=== PATIENT | male | born 1960 | race Caucasian/White ===

== ENCOUNTER 2017-12-19 14:52 | Inpatient (IN) | payer SELFPAY ==
[~2017-12-19 14:52] MED LIST: Iopamidol 370 76% 100 ML VIAL ONE; Iopamidol 370 76% 50 ML VIAL FS ONE
[2017-12-19] MEDS ORDERED: Nitroglycerin 2% Ointment 1 INCH/1 GM Packet ONE (14:58)
[2017-12-19] MEDS ORDERED: Lidocaine 1% (PF) 30 ML VIAL ONE (15:08)
[2017-12-19] MEDS ORDERED: Aggrastat 12.5 MG/250 ML 250 ML ONE (15:27)
[2017-12-19] MEDS ORDERED: Norepinephrine 4 MG/4 ML VIAL ONE (16:14)
[2017-12-19] MEDS ORDERED: Clopidogrel Bisulfate 300 MG TAB ONE (16:25)
[2017-12-19] MEDS ORDERED: cloNIDine 0.1 MG TAB PO PRN (16:58)
[2017-12-19] MEDS ORDERED: traMADol HCl 50 MG TAB PO PRN (16:58)
[2017-12-19] MEDS ORDERED: Milk Of Magnesia 30 ML UDCUP PO PRN (16:58)
[2017-12-19] MEDS ORDERED: Mag-Al 1200 mg/1200 mg/30 ML UDCUP PO PRN (16:58)
[2017-12-19] MEDS ORDERED: Aggrastat 12.5 MG/250 ML 250 ML IVPB SCH (16:58)
[2017-12-19] MEDS ORDERED: Zolpidem Tartrate 5 MG TAB PO PRN (16:58)
[2017-12-19] MEDS ORDERED: Acetaminophen/Codeine 30-300mg Tablet PO PRN (16:58)
[2017-12-19] MEDS ORDERED: Nitroglycerin 0.4 MG TAB (25 Tab Bottle) SL PRN ×2 (16:58)
[2017-12-19] MEDS ORDERED: Clopidogrel Bisulfate 300 MG TAB PO SCH (16:58)
[2017-12-19 17:04] VITALS: BMI 20.2
[2017-12-19 17:17] LABS: #Basophils 0.1 thou/uL (0.0-0.2); #Lymphocytes 1.7 thou/uL (1.20-3.40); #Monocytes 0.9 thou/uL (0.11-0.59); #Neutrophils 14.5 thou/uL (1.40-6.50); %Basophils 0.6 % (0.0-1.0); %Eosinophils 0.1 % (0.0-10.0); %Lymphocytes 9.9 % (21.0-51.0); %Monocytes 5.5 % (0.0-10.0); %Neutrophils 83.9 % (42.0-75.0); Hemoglobin 15.1 g/dL (14.0-18.0); Mean Corpuscular HGB CONC 34.7 g/dL (32.0-36.0); Mean Corpuscular Hemoglobin 35.3 pg (27.0-31.0); Mean Platelet Volume 6.3 fL (7.4-10.4); Platelet Count 386 thou/uL (130-400); RBC Distribution Width 11.9 % (11.5-14.5); Red Blood Cell (RBC) Count 4.29 mill/uL (4.70-6.10); White Blood Cell (WBC) Count 17.2 thou/uL (4.8-10.8)
[2017-12-19 17:49] LABS: Troponin I 2.925 ng/mL (< 0.028)
--- NOTE | 2017-12-19 17:58 | RAD ---
CHEST ONE VIEW: INDICATIONS: Status post interventional cardiology procedure. COMPARISON: 12/19/2017 FINDINGS: There is mild pulmonary vasculature prominence. There is mild interstitial prominence. This may ref lect a component of volume overload. Heart size is accentuated by exam technique. No confluent air space opacity or pleural effusion is noted. No pneumothorax is evident. No acute osseous abnormalit y is evident. IMPRESSION: Mild pulmonary vascular prominence may reflect volume overload with some mild interstitial edema. No mildred evidence to suggest overt congestive heart failure. POS: SHANICE
[2017-12-19] MEDS: Sodium Chloride 0.9% 1,000 ML IV SCH ×2 (18:12→21:03)
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
[2017-12-19 20:42] LABS: Troponin I 19.791 ng/mL (< 0.028)
[2017-12-19] MEDS: Atorvastatin Calcium 20 MG TAB PO SCH (21:03)
[2017-12-19] MEDS: Metoprolol Tartrate 25 MG TAB PO SCH (21:03)
[2017-12-19 23:14] LABS: #Basophils 0.1 thou/uL (0.0-0.2); #Lymphocytes 3.8 thou/uL (1.20-3.40); #Monocytes 1.3 thou/uL (0.11-0.59); #Neutrophils 10.4 thou/uL (1.40-6.50); %Basophils 0.5 % (0.0-1.0); %Eosinophils 0.3 % (0.0-10.0); %Lymphocytes 24.4 % (21.0-51.0); %Monocytes 8.2 % (0.0-10.0); %Neutrophils 66.6 % (42.0-75.0); Hemoglobin 14.8 g/dL (14.0-18.0); Mean Corpuscular Hemoglobin 33.7 pg (27.0-31.0); Mean Platelet Volume 6.2 fL (7.4-10.4); Platelet Count 382 thou/uL (130-400); RBC Distribution Width 12.1 % (11.5-14.5); Red Blood Cell (RBC) Count 4.38 mill/uL (4.70-6.10); White Blood Cell (WBC) Count 15.6 thou/uL (4.8-10.8)
[2017-12-20 05:46] LABS: #Eosinphils 0.1 thou/uL (0.0-0.7); #Lymphocytes 3.2 thou/uL (1.20-3.40); #Monocytes 1.3 thou/uL (0.11-0.59); #Neutrophils 10.9 thou/uL (1.40-6.50); %Basophils 0.2 % (0.0-1.0); %Eosinophils 0.4 % (0.0-10.0); %Lymphocytes 20.6 % (21.0-51.0); %Monocytes 8.2 % (0.0-10.0); %Neutrophils 70.7 % (42.0-75.0); Hemoglobin 14.7 g/dL (14.0-18.0); Mean Corpuscular HGB CONC 32.3 g/dL (32.0-36.0); Mean Corpuscular Hemoglobin 33.4 pg (27.0-31.0); Mean Platelet Volume 6.3 fL (7.4-10.4); Platelet Count 372 thou/uL (130-400); RBC Distribution Width 12.1 % (11.5-14.5); Red Blood Cell (RBC) Count 4.39 mill/uL (4.70-6.10); White Blood Cell (WBC) Count 15.5 thou/uL (4.8-10.8)
[2017-12-20 05:55] LABS: ALT (SGPT) 29 U/L (8-55); AST (SGOT) 131 U/L (5-34); Albumin 3.8 g/dL (3.5-5.0); Alkaline Phosphatase 50 U/L (40-150); Anion Gap 12 mmol/L (10-20); BUN (Urea Nitrogen) 10 mg/dL (8.4-25.7); Bilirubin, Total 0.8 mg/dL (0.2-1.2); Calc. Creatinine Clearance 93 mL/min (70-130); Carbon Dioxide 24 mmol/L (22-29); Cardiac Risk 2.5 (Less than 4.5); Chloride 105 mmol/L (98-107); Cholesterol 128 mg/dl (< 200 Desired); Estimated GFR-MDRD Greater than 90; Globulin 2.5 g/dL (2.4-3.5); Glucose 118 mg/dL (70-105); HDL Cholesterol 52 mg/dL (>60 Neg Risk); LDL Cholesterol, Calculated 62 mg/dL; Potassium 3.9 mmol/L (3.5-5.1); Protein, Total 6.3 g/dL (6.0-8.3); Sodium 137 mmol/L (136-145); Triglycerides 69 mg/dL (Less than 150)
[2017-12-20] MEDS: Sodium Chloride 0.9% 1,000 ML IV SCH (09:07)
[2017-12-20] MEDS: Clopidogrel Bisulfate 75 MG TAB PO SCH (09:08)
[2017-12-20] MEDS: Metoprolol Tartrate 25 MG TAB PO SCH ×2 (09:08→21:31)
[2017-12-20] MEDS: Aspirin 325 mg Enteric Coated Tablet PO SCH (09:08)
[2017-12-20] MEDS: Lisinopril 2.5 MG TAB PO SCH (09:09)
[2017-12-20 11:04] LABS: #Lymphocytes 3.5 thou/uL (1.20-3.40); #Monocytes 1.2 thou/uL (0.11-0.59); #Neutrophils 12.4 thou/uL (1.40-6.50); %Basophils 0.1 % (0.0-1.0); %Eosinophils 0.2 % (0.0-10.0); %Lymphocytes 20.3 % (21.0-51.0); %Monocytes 7.2 % (0.0-10.0); %Neutrophils 72.2 % (42.0-75.0); Hemoglobin 14.9 g/dL (14.0-18.0); Mean Corpuscular HGB CONC 31.7 g/dL (32.0-36.0); Mean Corpuscular Hemoglobin 32.4 pg (27.0-31.0); Mean Platelet Volume 6.1 fL (7.4-10.4); Platelet Count 385 thou/uL (130-400); RBC Distribution Width 12.1 % (11.5-14.5); White Blood Cell (WBC) Count 17.2 thou/uL (4.8-10.8)
[2017-12-20 11:44] LABS: Troponin I 21.548 ng/mL (< 0.028)
[2017-12-20 17:22] LABS: #Basophils 0.1 thou/uL (0.0-0.2); #Eosinphils 0.1 thou/uL (0.0-0.7); #Lymphocytes 4.6 thou/uL (1.20-3.40); #Monocytes 1.3 thou/uL (0.11-0.59); #Neutrophils 9.7 thou/uL (1.40-6.50); %Basophils 0.7 % (0.0-1.0); %Eosinophils 0.6 % (0.0-10.0); %Monocytes 8.3 % (0.0-10.0); %Neutrophils 61.4 % (42.0-75.0); Hemoglobin 15.4 g/dL (14.0-18.0); Mean Corpuscular HGB CONC 33.4 g/dL (32.0-36.0); Mean Corpuscular Hemoglobin 34.3 pg (27.0-31.0); Mean Platelet Volume 6.5 fL (7.4-10.4); Platelet Count 370 thou/uL (130-400); RBC Distribution Width 12.2 % (11.5-14.5); Red Blood Cell (RBC) Count 4.49 mill/uL (4.70-6.10); White Blood Cell (WBC) Count 15.7 thou/uL (4.8-10.8)
[2017-12-20] MEDS: Atorvastatin Calcium 20 MG TAB PO SCH (21:32)
[2017-12-20 23:28] LABS: #Basophils 0.1 thou/uL (0.0-0.2); #Eosinphils 0.1 thou/uL (0.0-0.7); #Lymphocytes 4.6 thou/uL (1.20-3.40); #Monocytes 1.4 thou/uL (0.11-0.59); #Neutrophils 11.5 thou/uL (1.40-6.50); %Basophils 0.7 % (0.0-1.0); %Eosinophils 0.7 % (0.0-10.0); %Lymphocytes 25.7 % (21.0-51.0); %Neutrophils 64.9 % (42.0-75.0); Hemoglobin 15.2 g/dL (14.0-18.0); Mean Corpuscular HGB CONC 32.7 g/dL (32.0-36.0); Mean Corpuscular Hemoglobin 33.7 pg (27.0-31.0); Mean Platelet Volume 6.3 fL (7.4-10.4); Platelet Count 375 thou/uL (130-400); RBC Distribution Width 12.3 % (11.5-14.5); Red Blood Cell (RBC) Count 4.52 mill/uL (4.70-6.10); White Blood Cell (WBC) Count 17.7 thou/uL (4.8-10.8)
[2017-12-21 05:27] LABS: #Basophils 0.1 thou/uL (0.0-0.2); #Eosinphils 0.1 thou/uL (0.0-0.7); #Lymphocytes 4.2 thou/uL (1.20-3.40); #Monocytes 1.5 thou/uL (0.11-0.59); #Neutrophils 10.2 thou/uL (1.40-6.50); %Basophils 0.4 % (0.0-1.0); %Eosinophils 0.9 % (0.0-10.0); %Monocytes 9.5 % (0.0-10.0); %Neutrophils 63.2 % (42.0-75.0); Hemoglobin 15.2 g/dL (14.0-18.0); Mean Corpuscular HGB CONC 32.2 g/dL (32.0-36.0); Mean Platelet Volume 6.7 fL (7.4-10.4); Platelet Count 381 thou/uL (130-400); RBC Distribution Width 12.2 % (11.5-14.5); White Blood Cell (WBC) Count 16.1 thou/uL (4.8-10.8)
[2017-12-21] MEDS: Lisinopril 2.5 MG TAB PO SCH (09:30)
[2017-12-21] MEDS: Clopidogrel Bisulfate 75 MG TAB PO SCH (09:30)
[2017-12-21] MEDS: Metoprolol Tartrate 25 MG TAB PO SCH (09:30)
[2017-12-21] MEDS: Aspirin 325 mg Enteric Coated Tablet PO SCH (09:33)
[2017-12-21 11:47] LABS: #Basophils 0.1 thou/uL (0.0-0.2); #Eosinphils 0.1 thou/uL (0.0-0.7); #Lymphocytes 3.6 thou/uL (1.20-3.40); #Monocytes 1.7 thou/uL (0.11-0.59); #Neutrophils 11.2 thou/uL (1.40-6.50); %Basophils 0.6 % (0.0-1.0); %Eosinophils 0.5 % (0.0-10.0); %Lymphocytes 21.4 % (21.0-51.0); %Neutrophils 67.6 % (42.0-75.0); Hemoglobin 15.7 g/dL (14.0-18.0); Mean Corpuscular HGB CONC 32.4 g/dL (32.0-36.0); Mean Corpuscular Hemoglobin 33.2 pg (27.0-31.0); Mean Platelet Volume 6.5 fL (7.4-10.4); Platelet Count 382 thou/uL (130-400); RBC Distribution Width 12.2 % (11.5-14.5); Red Blood Cell (RBC) Count 4.73 mill/uL (4.70-6.10); White Blood Cell (WBC) Count 16.6 thou/uL (4.8-10.8)
--- NOTE | 2017-12-21 15:38 | PDOC.CTH ---
<Rosa Garcia - Last Filed: 12/21/17 15:36> Cardiology Progress Note - Subjective The pt seen and examined. No overnight events. No cardiac complaints. - Objective Vital Signs Temp Pulse Resp BP BP Pulse Ox 12/21/17 11:40 78 20 90/59 L 12/21/17 09:30 92 115/59 L 12/21/17 07:25 98.6 F 92 18 115/59 L 12/21/17 04:30 98.3 F 87 17 100/64 97 Weight 146 lb 12.8 oz 12/20/17 12/21/17 12/22/17 06:59 06:59 06:59 Intake Total 1498 360 480 Output Total 925 1050 900 Balance 573 -573 -420 - Physical Examination General/Neuro: alert & oriented x3 Neck: no JVD present Lungs: CTA Heart: RRR Abdomen: soft Extremities: other: (No edema) - Labs Result Diagrams: 12/21/17 11:00 12/20/17 04:45 Troponin/CKMB Troponin I 21.548 ng/mL (< 0.028) H* 12/20/17 10:53 - Assessment/Plan 1. CAD with S/p Bare metal stent x1 in Prox. RCA on 12/20/17. 2. Parox. Afib - Converted back to SR on 2329 on 12/20/17. No OAC at this time , but cont. ASA and Plavix. * From Cardiac standpoint, the pt is stable to d/c with BBlocker, LEON, ASA, and Plavix. The pt will f/u with Dr Francis' office within 1 month. Review of Systems - Review of Systems Constitutional: reports: no symptoms reported EENTM: reports: no symptoms reported Respiratory: reports: no symptoms reported Cardiac (ROS): reports: no symptoms reported ABD/GI: reports: no symptoms reported : reports: no symptoms reported Musculoskeletal: reports: no symptoms reported <Gisela Francis - Last Filed: 12/22/17 17:55> Cardiology Progress Note - Objective Weight 146 lb 12.8 oz 12/21/17 12/22/17 12/23/17 06:59 06:59 06:59 Intake Total 360 480 Output Total 1050 900 Balance -690 420 - Labs Result Diagrams: 12/21/17 11:00 12/20/17 04:45 Troponin/CKMB Troponin I 21.548 ng/mL (< 0.028) H* 12/20/17 10:53 - Assessment/Plan Pt. seen and eval. by me. I agree with the a/P by the WOOD FENCE ERECTOR. He has done well after the PTCA/Stent to the RCA due to acute inferior STEMI. Thombectomy was also performed due to the large thombus burden in the RCA after PTCA and prior to stent placement. he is stable and ready for d/c . I will see him back in the office in a couple weeks.
[2017-12-21 20:32] VITALS: TEMP 98.1
[2017-12-21 20:33] VITALS: BP 95/60
--- NOTE | 2017-12-23 01:44 | DIS ---
DATE OF ADMISSION: 12/19/2017 DATE OF DISCHARGE: 12/21/2017 ADMITTING DIAGNOSES: 1. Acute inferior myocardial infarction. 2. Atrial fibrillation. DISCHARGE DIAGNOSES: 1. Coronary artery disease with acute inferior myocardial infarction which underwent angioplasty and stent placement. 2. Paroxysmal atrial fibrillation which converted back to sinus rhythm. PROCEDURES IN HOSPITAL: Emergent cardiac catheterization, left ventriculogram, coronary arteriography, angioplasty and stent placement with I believe this is a large stent implant into the right coronary artery. He did not have any complications or difficulty after procedure. The vessel was opened relatively quickly as he most likely will suffer very little damage to the left ventricle. DISCHARGE MEDICATIONS: Included Plavix, aspirin, nitroglycerin as needed, aspirin 325 mg a day, he was on Lipitor 20 mg a day, lisinopril 2.5 mg a day. He was given Lopressor 12.5 mg b.i.d. He will follow with me in the office in about a month. He will continue his routine followups with his primary care physician if he has one. As noted above he presented to the hospital with an acute inferior myocardial infarction where he underwent emergent angioplasty and stent placement to the right coronary artery. He does have evidence of vasospasm. He was implanted with a 4.5 x 16 mm bare metal stent, dilated up to approximately 4.6 mm in diameter. Also, he underwent thrombectomy with an export catheter device. He did tolerate the procedure well and once the vessel was open, his pain resolved. Previous to that, he was having significant discomfort. His ejection fraction was estimated at approximately 50% of the time of the cardiac catheterization. He did well otherwise and I will see him back in the office as noted above. TEVIN
--- NOTE | 2017-12-23 06:11 | EKG ---
Test Reason : Blood Pressure : / mmHG Vent. Rate : 097 BPM Atrial Rate : 093 BPM P-R Int : 000 ms QRS Dur : 102 ms QT Int : 302 ms P-R-T Axes : 000 064 -20 degrees QTc Int : 383 ms Atrial fibrillation Abnormal QRS-T angle, consider primary T wave abnormality T-wave inversion in Inferior leads Abnormal ECG No previous ECGs available Confirmed by IRMA PRESSLEY ([id number]) on 12/23/2017 6:10:54 AM Referred By: ELEANOR Confirmed By:IRMA PRESSLEY
== END 2017-12-21 16:56 | disposition home or self-care (01) | DRG 229 ==
LOC: ERS 14:52 → CCL 15:04 → CCU 16:13 → 2NO 12-20 12:00
PROVIDERS: ADMIT Internal Medicine Cardiovascular Disease; ATTEND Internal Medicine Cardiovascular Disease
PROC: 02C00ZZ Extirpation of Matter from Coronary Artery, One Artery, Open Approach (ICD-10-PCS; principal; 2017-12-19)
PROC: 02703DZ Dilation of Coronary Artery, One Artery with Intraluminal Device, Percutaneous Approach (ICD-10-PCS; 2017-12-19)
PROC: 3E07317 Introduction of Other Thrombolytic into Coronary Artery, Percutaneous Approach (ICD-10-PCS; 2017-12-19)
PROC: 4A023N7 Measurement of Cardiac Sampling and Pressure, Left Heart, Percutaneous Approach (ICD-10-PCS; 2017-12-19)
PROC: B2111ZZ Fluoroscopy of Multiple Coronary Arteries using Low Osmolar Contrast (ICD-10-PCS; 2017-12-19)
PROC: B2151ZZ Fluoroscopy of Left Heart using Low Osmolar Contrast (ICD-10-PCS; 2017-12-19)
DX: I21.19 ST elevation (STEMI) myocardial infarction involving other coronary artery of inferior wall (principal); F17.210 Nicotine dependence, cigarettes, uncomplicated; N40.0 Benign prostatic hyperplasia without lower urinary tract symptoms; I48.0 Paroxysmal atrial fibrillation; I25.10 Atherosclerotic heart disease of native coronary artery without angina pectoris; Z88.0 Allergy status to penicillin
CPT/HCPCS: 36415; 71045; 80053; 80061; 84484; 85025; 85347; 92941; 92973; 92977; 93005; 93010; 93306; 93458; 93798; 94760; C1757; C1769; C1876; C1887; J0282; J2001; J2270; J3246

== ENCOUNTER 2018-06-16 15:56 | Inpatient (IN) | payer SELFPAY ==
[~2018-06-16 15:56] MED LIST changes: -Iopamidol 370 76% 50 ML VIAL FS ONE
[2018-06-16] MEDS ORDERED: Ondansetron PF 4 MG/2 ML Vial ONE (16:00)
[2018-06-16] MEDS ORDERED: Morphine 4 MG/ML VIAL ONE (16:00)
[2018-06-16 16:12] LABS: #Basophils 0.1 thou/uL (0.0-0.2); #Eosinphils 0.3 thou/uL (0.0-0.7); #Lymphocytes 3.9 thou/uL (1.20-3.40); #Monocytes 0.9 thou/uL (0.11-0.59); #Neutrophils 13.1 thou/uL (1.40-6.50); %Basophils 0.6 % (0.0-1.0); %Eosinophils 1.5 % (0.0-10.0); %Lymphocytes 21.2 % (21.0-51.0); %Monocytes 4.9 % (0.0-10.0); %Neutrophils 71.8 % (42.0-75.0); Hemoglobin 15.7 g/dL (14.0-18.0); Mean Corpuscular HGB CONC 33.3 g/dL (32.0-36.0); Mean Corpuscular Hemoglobin 33.9 pg (27.0-31.0); Mean Platelet Volume 6.2 fL (7.4-10.4); Platelet Count 424 thou/uL (130-400); RBC Distribution Width 11.9 % (11.5-14.5); Red Blood Cell (RBC) Count 4.62 mill/uL (4.70-6.10); White Blood Cell (WBC) Count 18.3 thou/uL (4.8-10.8)
[2018-06-16 16:19] LABS: INR-International Normal Ratio 1.2
[2018-06-16 16:23] LABS: PTT 139.7 SEC (22.9-36.1)
[2018-06-16] MEDS ORDERED: Aggrastat 12.5 MG/250 ML 250 ML ONE (16:29)
[2018-06-16] MEDS ORDERED: Heparin 10,000 UNITS/1 ML VIAL ONE (16:30)
[2018-06-16] MEDS ORDERED: Nitroglycerin 100MG/250ML BOT 250 ML ONE (16:49)
[2018-06-16 16:53] LABS: ALT (SGPT) 12 U/L (8-55); AST (SGOT) 17 U/L (5-34); Albumin 4.2 g/dL (3.5-5.0); Alkaline Phosphatase 65 U/L (40-150); Anion Gap 17 mmol/L (10-20); BUN (Urea Nitrogen) 24 mg/dL (8.4-25.7); Bilirubin, Total 0.3 mg/dL (0.2-1.2); Calc. Creatinine Clearance 0 mL/min (70-130); Calcium 9.5 mg/dL (7.8-10.44); Carbon Dioxide 22 mmol/L (22-29); Chloride 103 mmol/L (98-107); Estimated GFR-MDRD 57; Globulin 2.7 g/dL (2.4-3.5); Glucose 148 mg/dL (70-105); Lipase 154 U/L (8-78); Potassium 3.6 mmol/L (3.5-5.1); Protein, Total 6.9 g/dL (6.0-8.3); Sodium 138 mmol/L (136-145)
[2018-06-16 16:56] LABS: CKMB 2.8 ng/mL (0-6.6)
[2018-06-16] MEDS ORDERED: TICAGRELOR 90 MG TABLET ONE (17:30)
[2018-06-16] MEDS ORDERED: Acetaminophen/Codeine 30-300mg Tablet PO PRN (17:40)
[2018-06-16] MEDS ORDERED: Aggrastat 12.5 MG/250 ML 250 ML IVPB SCH ×2 (17:40→17:45)
[2018-06-16] MEDS ORDERED: Nitroglycerin 0.4 MG TAB (25 Tab Bottle) SL PRN ×2 (17:40)
[2018-06-16] MEDS ORDERED: Aspirin Chewable 81 MG TAB PO SCH (18:30)
[2018-06-16 18:38] VITALS: BMI 21.8
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
[2018-06-16 18:56] LABS: Troponin I 0.425 ng/mL (< 0.028)
[2018-06-16] MEDS ORDERED: Atorvastatin Calcium 40 MG TAB PO SCH (21:00)
[2018-06-16] MEDS ORDERED: TICAGRELOR 90 MG TABLET PO SCH (21:00)
[2018-06-16] MEDS: Sodium Chloride 0.9% 1,000 ML IV SCH (21:02)
[2018-06-16] MEDS: Atorvastatin Calcium 40 MG TAB PO SCH (21:05)
[2018-06-17 00:45] LABS: Troponin I 13.215 ng/mL (< 0.028)
[2018-06-17] MEDS: Sodium Chloride 0.9% 1,000 ML IV SCH (04:30)
[2018-06-17 04:57] LABS: #Basophils 0.1 thou/uL (0.0-0.2); #Eosinphils 0.2 thou/uL (0.0-0.7); #Lymphocytes 3.2 thou/uL (1.20-3.40); #Monocytes 1.3 thou/uL (0.11-0.59); #Neutrophils 12.3 thou/uL (1.40-6.50); %Basophils 0.6 % (0.0-1.0); %Eosinophils 1.2 % (0.0-10.0); %Lymphocytes 18.7 % (21.0-51.0); %Monocytes 7.5 % (0.0-10.0); %Neutrophils 72.1 % (42.0-75.0); Hemoglobin 15.3 g/dL (14.0-18.0); Mean Corpuscular HGB CONC 33.4 g/dL (32.0-36.0); Mean Platelet Volume 6.3 fL (7.4-10.4); Platelet Count 411 thou/uL (130-400); RBC Distribution Width 12.1 % (11.5-14.5); Red Blood Cell (RBC) Count 4.51 mill/uL (4.70-6.10); White Blood Cell (WBC) Count 17.1 thou/uL (4.8-10.8)
[2018-06-17 05:13] LABS: ALT (SGPT) 13 U/L (8-55); AST (SGOT) 47 U/L (5-34); Albumin 3.8 g/dL (3.5-5.0); Alkaline Phosphatase 64 U/L (40-150); Anion Gap 12 mmol/L (10-20); BUN (Urea Nitrogen) 14 mg/dL (8.4-25.7); Bilirubin, Total 0.4 mg/dL (0.2-1.2); Calc. Creatinine Clearance 96 mL/min (70-130); Calcium 9.1 mg/dL (7.8-10.44); Carbon Dioxide 23 mmol/L (22-29); Chloride 106 mmol/L (98-107); Cholesterol 126 mg/dl (< 200 Desired); Estimated GFR-MDRD Greater than 90; Globulin 2.5 g/dL (2.4-3.5); Glucose 99 mg/dL (70-105); HDL Cholesterol 42 mg/dL (>60 Neg Risk); LDL Cholesterol, Calculated 66 mg/dL; Potassium 3.8 mmol/L (3.5-5.1); Protein, Total 6.3 g/dL (6.0-8.3); Sodium 137 mmol/L (136-145); Triglycerides 88 mg/dL (Less than 150)
[2018-06-17] MEDS: Carvedilol 3.125 MG TAB PO SCH ×2 (08:20→18:17)
[2018-06-17] MEDS: TICAGRELOR 90 MG TABLET PO SCH ×2 (08:20→21:58)
[2018-06-17] MEDS ORDERED: Lisinopril 2.5 MG TAB PO SCH (09:00)
[2018-06-17] MEDS: Lisinopril 2.5 MG TAB PO SCH (10:00)
[2018-06-17 10:31] LABS: Troponin I 14.533 ng/mL (< 0.028)
--- NOTE | 2018-06-17 12:13 | PDOC.CTH ---
Cardiology Progress Note - Subjective The pt seen and examined. No overnight events. No cardiac complaints. - Objective Vital Signs Temp Pulse Ox 06/17/18 12:00 98.6 F 06/17/18 08:00 96 06/17/18 07:00 98.6 F 06/17/18 04:00 98.7 F 06/17/18 01:00 98.1 F Admit Weight 0.257 oz Weight 160 lb 11.472 oz 06/16/18 06/17/18 06/18/18 06:59 06:59 06:59 Intake Total 960 400 Output Total 1750 550 Balance -790 -150 - Physical Examination General/Neuro: alert & oriented x3 Neck: no JVD present Lungs: CTA (diminished at bases) Heart: RRR Abdomen: soft Extremities: other: (No edema) - Telemetry Telemetry Rhythm: SR - Labs Result Diagrams: 06/17/18 04:29 06/17/18 04:29 Troponin/CKMB CK-MB (CK-2) 2.8 ng/mL (0-6.6) 06/16/18 16:04 Troponin I 14.533 ng/mL (< 0.028) H* 06/17/18 04:29 - Assessment/Plan 1. CAD with s/p AUDI x1 in RCA on 06/16/2018 - stable; On coreg 3.125mg BID, Lipitor 40mg qd, ASA 81mg qd and Brilinta 90mg BID; 2. Hx of post-procedure Afib in 11/2017 - remains in SR; cont. to monitor on tele 3. Current tobacco abuse - smoking cessation education given to the pt MAR reviewed * Ok to tx to tele * Brilinta sample for 1 month will be given to the pt prior to the discharge * after Brilinta for 1 month (1 month sample will given to the pt at discharge) , then, changed to Plavix 75mg qd. he must be on Plavix with ASA 81mg for at least 1 year (prefer forever). Pt. seen and eval. by me. I agree with the A/P by the TREND INVESTIGATOR. Hopefully he will stop smoking and take the anti-platelet medications. He will be d/c'd to home in AM if he remains stable. He should see me in the office in 2-4 weeks. gjm Review of Systems - Review of Systems Constitutional: reports: no symptoms reported EENTM: reports: no symptoms reported Respiratory: reports: no symptoms reported Cardiac (ROS): reports: no symptoms reported ABD/GI: reports: no symptoms reported : reports: no symptoms reported Musculoskeletal: reports: no symptoms reported
[2018-06-17] MEDS: Atorvastatin Calcium 40 MG TAB PO SCH (21:58)
[2018-06-18 05:27] LABS: Critical Call Chem Troponin I RESULT DECREASING; Troponin I 5.807 ng/mL (< 0.028)
[2018-06-18] MEDS ORDERED: Aspirin 81 mg Enteric Coated Tablet PO SCH (09:00)
[2018-06-18] MEDS: Carvedilol 3.125 MG TAB PO SCH ×2 (09:02→17:09)
[2018-06-18] MEDS: TICAGRELOR 90 MG TABLET PO SCH (09:02)
[2018-06-18] MEDS: Lisinopril 2.5 MG TAB PO SCH (10:16)
[2018-06-18 15:28] VITALS: BP 103/59; TEMP 98.7
--- NOTE | 2018-06-20 10:53 | DIS ---
DATE OF ADMISSION: 06/16/2018 DATE OF DISCHARGE: 06/18/2018 DISCHARGE DISPOSITION: To home. PRIMARY DISCHARGE DIAGNOSES: 1. Coronary artery disease with a history of stent placement. 2. Current tobacco abuse. PRIMARY PROCEDURE: catheterization with drug-eluting stent x1 in the right coronary artery on June 16, 2018. DISCHARGE MEDICATIONS: 1. Aspirin 81 mg once a day. 2. Atorvastatin 40 mg once a day. 3. Carvedilol 3.125 mg twice a day. 4. Lisinopril 2.5 mg once a day. 5. Nitroglycerin 0.4 mg sublingual every 5 minutes as needed. 6. Brilinta 90 mg twice a day, which the patient is supposed to take 1 month and then change Plavix 75 mg once a day. CONTRAINDICATION OF THE MEDICATION: None. CODE STATUS: Full code. DISCHARGE PLAN: The patient will follow up with Dr. Francis' office within the 2 to 4 weeks. The patient has to be on Brilinta for at least 1 month and then change to Plavix 75 mg once a day, one month of Brilinta sample was given to the patient prior to the discharge. HOSPITAL COURSE: Mr. Bunch is a 58-year-old male with a significant of coronary artery disease with stent placement in the right coronary artery in November 2017. He has continued smoking about 1 pack a day. He was not taking any cardiac-related medication due to especially Plavix for a couple of months due to no prescription. The patient presented to the emergency department on June 16, 2018 for acute inferior myocardial infarction. The patient underwent cardiac catheterization and had a stent placement in the right coronary artery. After the stent, the next day, the patient is doing well. No chest pain, shortness of breath, dizziness, lightheadedness, or any cardiac complaints. The patient was given tobacco cessation education also during this admission. The patient voiced that he is willing to quit smoking and continue taking the patient's medication as prescribed. The patient's question and concern were answered at the bedside. The patient was seen and examined at the bedside on June 17, 2018 for almost more than 30 minutes. If the patient is stable, he is able to be discharged next day. Job ID: [id number]
--- NOTE | 2018-06-21 08:04 | DIS ---
DATE OF ADMISSION: 06/16/2018 DATE OF DISCHARGE: 06/18/2018 DISCHARGE DIAGNOSES: 1. Acute inferior ST-elevation myocardial infarction with in-stent restenosis with placement of drug-eluting stent. 2. History of inferior ST-elevation myocardial infarction in November 2010 with bare metal stent placement. 3. Patient continues to smoke. 4. Hyperlipidemia. DISCHARGE DISPOSITION: The patient will follow up with Dr. Francis. DISCHARGE MEDICATIONS: Same as on admission: 1. Brilinta 90 mg b.i.d. 2. Nitroglycerin p.r.n. 3. Aspirin 81 daily. 4. Carvedilol 3.125 b.i.d. 5. Lisinopril 2.5 mg daily. HOSPITAL COURSE: Mr. Bunch presented with chest discomfort and ST-segment elevation inferiorly as well as reciprocal changes in the precordial leads. He went to the tree tapping laborer emergently with Dr. Francis. There was a 99% in-stent restenosis. There was a PTCA and then Synergy (drug-eluting) stent 4.0 x 24 mm was placed. This post dilated to 4.5 mm with 0% residual. His troponin peaked at 14.533. His cholesterol was 126, triglycerides 88, HDL 42, and LDL 66. He was walking 640 feet in the brar the morning after the procedure without symptoms and was discharged. Job ID: [id number]
== END 2018-06-18 20:50 | disposition home or self-care (01) | DRG 247 ==
LOC: ERS 15:56 → CCU 17:12 → 2SE 06-17 15:25
PROVIDERS: ADMIT Internal Medicine Cardiovascular Disease; ATTEND Internal Medicine Cardiovascular Disease
PROC: 027034Z Dilation of Coronary Artery, One Artery with Drug-eluting Intraluminal Device, Percutaneous Approach (ICD-10-PCS; principal; 2018-06-16)
PROC: 4A023N7 Measurement of Cardiac Sampling and Pressure, Left Heart, Percutaneous Approach (ICD-10-PCS; 2018-06-16)
PROC: B2101ZZ Fluoroscopy of Single Coronary Artery using Low Osmolar Contrast (ICD-10-PCS; 2018-06-16)
PROC: 3E033PZ Introduction of Platelet Inhibitor into Peripheral Vein, Percutaneous Approach (ICD-10-PCS; 2018-06-16)
DX: I21.19 ST elevation (STEMI) myocardial infarction involving other coronary artery of inferior wall (principal); I25.10 Atherosclerotic heart disease of native coronary artery without angina pectoris; F17.210 Nicotine dependence, cigarettes, uncomplicated; N40.0 Benign prostatic hyperplasia without lower urinary tract symptoms; E78.5 Hyperlipidemia, unspecified; Z88.0 Allergy status to penicillin; I25.2 Old myocardial infarction; Z95.5 Presence of coronary angioplasty implant and graft; Z79.82 Long term (current) use of aspirin; Z79.02 Long term (current) use of antithrombotics/antiplatelets; Z79.899 Other long term (current) drug therapy
CPT/HCPCS: 36415; 37212; 80053; 80061; 82553; 83690; 84484; 85025; 85347; 85610; 85730; 92928; 93005; 93010; 93458; 93798; 96374; 96375; C1769; C1874; C1887; C9600; J1644; J2270; J2405; J3246; Q9967